=== PATIENT | female | born 1985 | race Two or more races ===

== ENCOUNTER 2021-02-02 11:05 | Emergency (ER) | payer MEDICAID, OTHER ==
[~2021-02-02] VITALS: Ht 167.6 cm; Wt 90.7 kg
[2021-02-02 12:08] VITALS: BP 118/70
[2021-02-02] MEDS ORDERED: IBUPROFEN 800 MG TAB PO ONE (14:00)
== END 2021-02-02 13:58 | disposition home or self-care (01) ==
LOC: ER 11:05 → EDBD 11:05 → ER 13:58
DX: S90.822A Blister (nonthermal), left foot, initial encounter (principal); M79.671 Pain in right foot; M79.672 Pain in left foot; F17.210 Nicotine dependence, cigarettes, uncomplicated; Z59.0 Homelessness; X58.XXXA Exposure to other specified factors, initial encounter; Y93.89 Activity, other specified; Y92.89 Other specified places as the place of occurrence of the external cause; Y99.8 Other external cause status